=== PATIENT | male | born 1935 | race Caucasian/White ===

== ENCOUNTER 2022-12-31 19:01 | Emergency (ER) | payer MEDICARE ==
[~2022-12-31 19:01] MED LIST: Iopamidol 370 76% 100 ML VIAL ONE
[2022-12-31] MEDS ORDERED: Sodium Chloride 0.9% 1,000 ML ONE (19:50)
[2022-12-31] MEDS ORDERED: Acetaminophen 500 MG TAB ONE (19:50)
[2022-12-31 20:01] LABS: Hemoglobin 11.5 g/dL (14.0-18.0); Mean Corpuscular HGB CONC 30.9 g/dL (32.0-36.0); Mean Corpuscular Hemoglobin 28.2 pg (27.0-31.0); Mean Corpuscular Volume 91.1 fl (78.0-98.0); Mean Platelet Volume 6.1 fL (7.4-10.4); Platelet Count 152 10x3/uL (130-400); RBC Distribution Width 13.2 % (11.5-14.5); Red Blood Cell (RBC) Count 4.07 mill/uL (4.70-6.10); White Blood Cell (WBC) Count 4.5 10x3/uL (4.8-10.8)
[2022-12-31 20:02] LABS: Bilirubin Negative (Negative); Blood, Urine Negative (Negative); Clarity Clear (Clear); Glucose, Urine (Dipstick) Negative (Negative); Ketone, Urine Negative (Negative); Leukocyte Negative (Negative); Nitrite Negative (Negative); Protein, Urine (Dipstick) Negative (Neg-Trace); Specific Gravity, Urine 1.025 (1.005-1.030); Urobilinogen 0.2 mg/dL (Less than 2); pH, Urine 5.5 (5.0-9.0)
[2022-12-31 20:03] LABS: MDiff Complete? YES; Manual Diff?? YES
[2022-12-31 20:09] LABS: ALT (SGPT) 17 U/L (8-55); AST (SGOT) 17 U/L (5-34); Albumin 4.3 g/dL (3.4-4.8); Alkaline Phosphatase 76 U/L (40-110); Anion Gap 20 mmol/L (10-20); BUN (Urea Nitrogen) 24 mg/dL (8.4-25.7); Bilirubin, Total 0.3 mg/dL (0.2-1.2); Calc. Creatinine Clearance 0 mL/min (70-130); Calcium 9.4 mg/dL (7.8-10.44); Carbon Dioxide 21 mmol/L (23-31); Chloride 102 mmol/L (98-107); Estimated GFR 56; Glucose 120 mg/dL (83-110); Lipase 58 U/L (8-78); Potassium 4.6 mmol/L (3.5-5.1); Protein, Total 7.3 g/dL (5.8-8.1); Sodium 138 mmol/L (136-145)
[2022-12-31 20:20] LABS: Band 4 % (5-11); Lymphocytes 22 % (21-51); Macrocytosis SLIGHT = 6-15 cells (100X) (0-5/hpf); Monocytes 1 % (0-10); Neutrophil 72 % (42-75); Reactive Lymphocytes 1 % (0-10)
[2022-12-31 20:21] LABS: Anisocytosis SLIGHT = 6-15 cells (100X) (0-5/hpf); Elliptocytes SLIGHT = 2-5 cells (100X) (0-1/hpf)
[2022-12-31 20:23] LABS: Platelet Morphology Comment Appears Adequate; Toxic Granulation SLIGHT; Vacuoles SLIGHT
[2022-12-31] MEDS ORDERED: Sodium Chloride 0.9% 100 ML ONE (20:24)
[2022-12-31] MEDS ORDERED: Sodium Chloride 0.9% 250 ML 250 ML ONE (20:24)
[2022-12-31] MEDS ORDERED: Vancomycin 1 GM VIAL ONE (20:24)
[2022-12-31] MEDS ORDERED: Piperacillin/Tazobactam 3.375 GM VIAL ONE (20:24)
[2022-12-31 21:23] LABS: SARS-CoV-2 NAA Rapid Test Not Detected (NotDetected)
[2022-12-31] MEDS ORDERED: Ibuprofen 800 MG TAB ONE (22:50)
== END 2023-01-01 00:58 | disposition short-term general hospital (02) ==
LOC: NAV ERS 19:01 → EDBD 19:01 → NAV ERS 01-01 00:58
DX: A41.9 Sepsis, unspecified organism (principal); I95.89 Other hypotension; D72.829 Elevated white blood cell count, unspecified; E78.00 Pure hypercholesterolemia, unspecified; I10 Essential (primary) hypertension; Z79.82 Long term (current) use of aspirin; Z79.899 Other long term (current) drug therapy; Z20.822 Contact with and (suspected) exposure to COVID-19
CPT/HCPCS: 36415; 71045; 71275; 80053; 81003; 83605; 83690; 83735; 83880; 84484; 85025; 85379; 87040; 87086; 87149; 87804; 93005; 96361; 96365; 96367; J2543; J3370; J3490; J7050; Q9967; U0002

== ENCOUNTER 2025-06-22 10:10 | Emergency (ER) | payer MEDICARE | END 2025-06-22 12:30 | disposition home or self-care (01) | LOC: NAV ERS 10:10 | DX: S22.42XA Multiple fractures of ribs, left side, initial encounter for closed fracture (principal); S30.0XXA Contusion of lower back and pelvis, initial encounter; S69.91XA Unspecified injury of right wrist, hand and finger(s), initial encounter; E78.00 Pure hypercholesterolemia, unspecified; I10 Essential (primary) hypertension; W18.39XA Other fall on same level, initial encounter; Z79.899 Other long term (current) drug therapy; Z79.82 Long term (current) use of aspirin | CPT/HCPCS: 72100 ==

== ENCOUNTER 2025-07-19 08:06 | Inpatient (IN) | payer MEDICARE ==
[2025-07-19] MEDS ORDERED: Metoprolol Succinate XL 25 MG ER.TAB PO SCH (23:15)
[2025-07-19] MEDS ORDERED: Apixaban 5 MG TAB PO SCH (23:15)
[2025-07-20] MEDS: Metoprolol Succinate XL 25 MG ER.TAB PO SCH ×2 (00:17→20:26)
[2025-07-20] MEDS: Calcium Carbonate 600 MG + Vit D TAB PO SCH ×2 (00:17→08:58)
[2025-07-20] MEDS: Apixaban 5 MG TAB PO SCH ×2 (00:18→09:04)
[2025-07-20] MEDS: Mometasone 200 MCG/Formoterol 5 MCG 60 PUFF INHALER INH SCH ×2 (00:18→09:07)
[2025-07-20] MEDS: Famotidine 20 MG TAB PO SCH ×2 (00:18→09:04)
[2025-07-20] MEDS: Gabapentin 100 MG CAP PO SCH ×2 (00:18→09:00)
[2025-07-20] MEDS: Apixaban 5 MG TAB ONE (01:00)
[2025-07-20] MEDS: Famotidine 20 MG TAB ONE (01:00)
[2025-07-20] MEDS: Gabapentin 100 MG CAP ONE (01:00)
[2025-07-20 05:27] LABS: #Basophils 0.1 thou/uL (0.0-0.2); #Eosinophils 0.6 thou/uL (0.0-0.7); #Lymphocytes 1.6 thou/uL (1.20-3.40); #Monocytes 0.7 thou/uL (0.11-0.59); #Neutrophils 6.0 thou/uL (1.40-6.50); %Basophils 1.6 % (0.0-1.0); %Eosinophils 6.9 % (0.0-10.0); %Lymphocytes 17.7 % (21.0-51.0); %Monocytes 8.1 % (0.0-10.0); %Neutrophils 65.7 % (42.0-75.0); Hematocrit 23.9 % (42.0-52.0); Hemoglobin 8.6 g/dL (14.0-18.0); Mean Corpuscular Hemoglobin 30.1 pg (27.0-31.0); Mean Corpuscular Volume 84.0 fl (78.0-98.0); Platelet Count 237 10x3/uL (130-400); Red Blood Cell (RBC) Count 2.85 mill/uL (4.70-6.10); White Blood Cell (WBC) Count 9.1 10x3/uL (4.8-10.8)
[2025-07-20 05:39] LABS: ALT (SGPT) 39 U/L (Less than 45); AST (SGOT) 31 U/L (11-34); Albumin 3.0 g/dL (3.1-4.5); Alkaline Phosphatase 78 U/L (40-110); Anion Gap 15 mmol/L (10-20); BUN (Urea Nitrogen) 31 mg/dL (8.4-25.7); Bilirubin, Total 0.6 mg/dL (0.3-1.2); Calc. Creatinine Clearance 48 mL/min (70-130); Calcium 9.4 mg/dL (7.8-10.44); Carbon Dioxide 27 mmol/L (23-31); Chloride 98 mmol/L (98-107); Globulin 3.2 g/dL (2.4-3.5); Glucose 103 mg/dL (83-110); Potassium 4.2 mmol/L (3.5-5.1); Sodium 136 mmol/L (136-145)
[2025-07-20] MEDS: DULoxetine 30 MG CAP PO SCH (08:59)
[2025-07-20] MEDS: Finasteride 5 MG TAB PO SCH (09:02)
[2025-07-20] MEDS: Aspirin 81 mg Enteric Coated Tablet PO SCH (09:02)
[2025-07-20] MEDS: Furosemide 20 MG TAB PO SCH (09:03)
[2025-07-20] MEDS: Rosuvastatin 20 MG TAB PO SCH (09:03)
[2025-07-20] MEDS: Acetaminophen 325 MG TAB PO PRN (13:55)
[2025-07-21 05:18] LABS: Hematocrit 24.4 % (42.0-52.0); Hemoglobin 8.7 g/dL (14.0-18.0); Platelet Count 244 10x3/uL (130-400)
[2025-07-21 05:31] LABS: Calc. Creatinine Clearance 44.0 mL/min (70-130)
[2025-07-21] MEDS: Famotidine 20 MG TAB PO SCH (09:09)
[2025-07-21] MEDS: Apixaban 2.5 MG TAB PO SCH (09:10)
[2025-07-22 06:00] LABS: Calc. Creatinine Clearance 30.0 mL/min (70-130)
[2025-07-23] MEDS: Apixaban 5 MG TAB PO SCH (21:01)
[2025-07-24 05:50] LABS: #Basophils 0.1 thou/uL (0.0-0.2); #Eosinophils 0.4 thou/uL (0.0-0.7); #Lymphocytes 1.2 thou/uL (1.20-3.40); #Monocytes 0.6 thou/uL (0.11-0.59); #Neutrophils 3.8 thou/uL (1.40-6.50); %Basophils 1.8 % (0.0-1.0); %Eosinophils 6.6 % (0.0-10.0); %Lymphocytes 19.0 % (21.0-51.0); %Monocytes 10.5 % (0.0-10.0); %Neutrophils 62.2 % (42.0-75.0); Hematocrit 21.7 % (42.0-52.0); Hemoglobin 7.7 g/dL (14.0-18.0); Mean Corpuscular Hemoglobin 29.4 pg (27.0-31.0); Mean Corpuscular Volume 83.0 fl (78.0-98.0); Platelet Count 237 10x3/uL (130-400); Red Blood Cell (RBC) Count 2.62 mill/uL (4.70-6.10); White Blood Cell (WBC) Count 6.1 10x3/uL (4.8-10.8)
[2025-07-24 06:06] LABS: Anion Gap 12 mmol/L (10-20); BUN (Urea Nitrogen) 28 mg/dL (8.4-25.7); Calc. Creatinine Clearance 52 mL/min (70-130); Calcium 8.6 mg/dL (7.8-10.44); Carbon Dioxide 26 mmol/L (23-31); Chloride 101 mmol/L (98-107); Glucose 97 mg/dL (83-110); Potassium 3.4 mmol/L (3.5-5.1); Sodium 136 mmol/L (136-145)
[2025-07-25 06:02] LABS: Anion Gap 13 mmol/L (10-20); BUN (Urea Nitrogen) 27 mg/dL (8.4-25.7); Calc. Creatinine Clearance 52 mL/min (70-130); Calcium 8.6 mg/dL (7.8-10.44); Carbon Dioxide 25 mmol/L (23-31); Chloride 102 mmol/L (98-107); Glucose 96 mg/dL (83-110); Potassium 3.9 mmol/L (3.5-5.1); Sodium 136 mmol/L (136-145)
[2025-07-25] MEDS: Ferrous Sulfate 325 MG TAB PO SCH (09:14)
[2025-07-25] MEDS: Pantoprazole 40 MG DR.TAB PO SCH (09:15)
[2025-07-25] MEDS: Mag-Al Plus 1200/1200/120 MG (30 mL) UDCUP PO PRN (09:44)
[2025-07-29] MEDS: Senokot S 8.6-50 MG TAB PO PRN (08:33)
[2025-07-30 06:11] LABS: #Basophils 0.1 thou/uL (0.0-0.2); #Eosinophils 0.3 thou/uL (0.0-0.7); #Lymphocytes 1.4 thou/uL (1.20-3.40); #Monocytes 0.7 thou/uL (0.11-0.59); #Neutrophils 4.2 thou/uL (1.40-6.50); %Basophils 1.6 % (0.0-1.0); %Eosinophils 5.1 % (0.0-10.0); %Lymphocytes 20.8 % (21.0-51.0); %Monocytes 9.8 % (0.0-10.0); %Neutrophils 62.7 % (42.0-75.0); ALT (SGPT) 12 U/L (Less than 45); AST (SGOT) 19 U/L (11-34); Albumin 2.9 g/dL (3.1-4.5); Alkaline Phosphatase 72 U/L (40-110); Anion Gap 12 mmol/L (10-20); BUN (Urea Nitrogen) 23 mg/dL (8.4-25.7); Bilirubin, Total 0.5 mg/dL (0.3-1.2); Calc. Creatinine Clearance 42 mL/min (70-130); Calcium 8.1 mg/dL (7.8-10.44); Carbon Dioxide 25 mmol/L (23-31); Chloride 98 mmol/L (98-107); Globulin 2.9 g/dL (2.4-3.5); Glucose 92 mg/dL (83-110); Hematocrit 23.3 % (42.0-52.0); Hemoglobin 7.6 g/dL (14.0-18.0); Mean Corpuscular Hemoglobin 29.7 pg (27.0-31.0); Mean Corpuscular Volume 90.7 fl (78.0-98.0); Platelet Count 206 10x3/uL (130-400); Potassium 4.1 mmol/L (3.5-5.1); Red Blood Cell (RBC) Count 2.57 mill/uL (4.70-6.10); Sodium 131 mmol/L (136-145); White Blood Cell (WBC) Count 6.6 10x3/uL (4.8-10.8)
[2025-08-01 03:27] VITALS: BMI 28.6
[2025-08-03 05:15] LABS: #Basophils 0.1 thou/uL (0.0-0.2); #Eosinophils 0.4 thou/uL (0.0-0.7); #Lymphocytes 1.3 thou/uL (1.20-3.40); #Monocytes 0.5 thou/uL (0.11-0.59); #Neutrophils 3.8 thou/uL (1.40-6.50); %Basophils 1.2 % (0.0-1.0); %Eosinophils 5.8 % (0.0-10.0); %Lymphocytes 22.1 % (21.0-51.0); %Monocytes 9.0 % (0.0-10.0); %Neutrophils 62.0 % (42.0-75.0); Hematocrit 24.1 % (42.0-52.0); Hemoglobin 8.0 g/dL (14.0-18.0); Mean Corpuscular Hemoglobin 29.9 pg (27.0-31.0); Mean Corpuscular Volume 90.5 fl (78.0-98.0); Platelet Count 165 10x3/uL (130-400); Red Blood Cell (RBC) Count 2.66 mill/uL (4.70-6.10); White Blood Cell (WBC) Count 6.1 10x3/uL (4.8-10.8)
[2025-08-03 05:29] LABS: Anion Gap 14 mmol/L (10-20); BUN (Urea Nitrogen) 26 mg/dL (8.4-25.7); Calc. Creatinine Clearance 35 mL/min (70-130); Calcium 8.6 mg/dL (7.8-10.44); Carbon Dioxide 26 mmol/L (23-31); Chloride 99 mmol/L (98-107); Glucose 105 mg/dL (83-110); Potassium 4.1 mmol/L (3.5-5.1); Sodium 135 mmol/L (136-145)
[2025-08-03] MEDS: Proctozone-HC 30 GM TUBE TOP SCH (08:37)
[2025-08-04 05:27] LABS: Anion Gap 13 mmol/L (10-20); BUN (Urea Nitrogen) 29 mg/dL (8.4-25.7); Calc. Creatinine Clearance 36 mL/min (70-130); Calcium 8.3 mg/dL (7.8-10.44); Carbon Dioxide 25 mmol/L (23-31); Chloride 99 mmol/L (98-107); Glucose 103 mg/dL (83-110); Potassium 4.2 mmol/L (3.5-5.1); Sodium 133 mmol/L (136-145)
[2025-08-05] MEDS: Bisacodyl 10 MG SUPP PR PRN (05:07)
[2025-08-05] MEDS: Fleet Saline Enema 133 ML BOT PR SCH (15:30)
[2025-08-05] MEDS: Apixaban 2.5 MG TAB PO SCH (21:34)
[2025-08-06 08:32] VITALS: BMI 28.6
[2025-08-06 11:05] VITALS: TEMP 98.1
[2025-08-06 13:41] VITALS: BP 105/58
== END 2025-08-06 19:15 | disposition still patient (30) | DRG 945 ==
LOC: NAV ACUTE 20:09
PROVIDERS: ADMIT Family Medicine; ATTEND Family Medicine
PROC: F07Z9ZZ Gait Training/Functional Ambulation Treatment (ICD-10-PCS; principal; 2025-07-19)
DX: R53.81 Other malaise (principal); I13.0 Hypertensive heart and chronic kidney disease with heart failure and stage 1 through stage 4 chronic kidney disease, or unspecified chronic kidney disease; I50.32 Chronic diastolic (congestive) heart failure; N17.9 Acute kidney failure, unspecified; S72.091D Other fracture of head and neck of right femur, subsequent encounter for closed fracture with routine healing; I48.0 Paroxysmal atrial fibrillation; N40.0 Benign prostatic hyperplasia without lower urinary tract symptoms; J45.40 Moderate persistent asthma, uncomplicated; E78.5 Hyperlipidemia, unspecified; R41.0 Disorientation, unspecified; E87.6 Hypokalemia; N18.31 Chronic kidney disease, stage 3a; D63.1 Anemia in chronic kidney disease; K59.00 Constipation, unspecified; K21.9 Gastro-esophageal reflux disease without esophagitis; K64.9 Unspecified hemorrhoids
CPT/HCPCS: 36415; 80048; 80053; 82565; 85014; 85018; 85025; 85049; 94664; Q0162

== ENCOUNTER 2025-08-06 14:00 | Emergency (ER) | payer MEDICARE ==
[2025-08-06 14:33] LABS: #Basophils 0.0 thou/uL (0.0-0.2); #Eosinophils 0.2 thou/uL (0.0-0.7); #Lymphocytes 1.5 thou/uL (1.20-3.40); #Monocytes 0.7 thou/uL (0.11-0.59); #Neutrophils 5.6 thou/uL (1.40-6.50); %Basophils 0.6 % (0.0-1.0); %Eosinophils 3.0 % (0.0-10.0); %Lymphocytes 18.2 % (21.0-51.0); %Monocytes 8.6 % (0.0-10.0); %Neutrophils 69.7 % (42.0-75.0); Hematocrit 22.7 % (42.0-52.0); Hemoglobin 7.3 g/dL (14.0-18.0); Mean Corpuscular Hemoglobin 29.2 pg (27.0-31.0); Mean Corpuscular Volume 91.0 fl (78.0-98.0); Platelet Count 131 10x3/uL (130-400); Red Blood Cell (RBC) Count 2.49 mill/uL (4.70-6.10); White Blood Cell (WBC) Count 8.0 10x3/uL (4.8-10.8)
[2025-08-06 14:44] LABS: INR-International Normal Ratio 1.7; Prothrombin Time 20.4 sec (12.0-14.7)
[2025-08-06 14:45] LABS: PTT 48.9 sec (22.9-36.1)
[2025-08-06 14:49] LABS: ALT (SGPT) 12 U/L (Less than 45); AST (SGOT) 20 U/L (11-34); Albumin 2.9 g/dL (3.1-4.5); Alkaline Phosphatase 68 U/L (40-110); Anion Gap 15 mmol/L (10-20); BUN (Urea Nitrogen) 34 mg/dL (8.4-25.7); Bilirubin, Total 0.5 mg/dL (0.3-1.2); Calc. Creatinine Clearance 0 mL/min (70-130); Calcium 8.5 mg/dL (7.8-10.44); Carbon Dioxide 24 mmol/L (23-31); Chloride 100 mmol/L (98-107); Globulin 3.1 g/dL (2.4-3.5); Glucose 136 mg/dL (83-110); Potassium 3.7 mmol/L (3.5-5.1); Sodium 135 mmol/L (136-145)
[2025-08-06] MEDS ORDERED: Pantoprazole 40 MG VIAL ONE (16:40)
== END 2025-08-06 20:14 | disposition short-term general hospital (02) ==
LOC: NAV ERS 14:00
DX: K92.2 Gastrointestinal hemorrhage, unspecified (principal); D64.9 Anemia, unspecified; I48.91 Unspecified atrial fibrillation; N28.9 Disorder of kidney and ureter, unspecified; E78.00 Pure hypercholesterolemia, unspecified; I11.0 Hypertensive heart disease with heart failure; I50.9 Heart failure, unspecified; J45.909 Unspecified asthma, uncomplicated; Z79.51 Long term (current) use of inhaled steroids; Z79.82 Long term (current) use of aspirin; Z79.01 Long term (current) use of anticoagulants; Z79.899 Other long term (current) drug therapy
CPT/HCPCS: 80053; 85025; 85610; 85730; 86900; 86901; 94760; J2470; 82274; 96374

== ENCOUNTER 2025-08-14 13:08 | Inpatient (IN) | payer MEDICARE ==
[2025-08-14] MEDS ORDERED: Senokot S 8.6-50 MG TAB PO PRN (14:03)
[2025-08-14] MEDS ORDERED: Mag-Al Plus 1200/1200/120 MG (30 mL) UDCUP PO PRN (14:03)
[2025-08-14 18:04] VITALS: BMI 26.9
[2025-08-14] MEDS: Mometasone 100 MCG/Formoterol 5 MCG 60 PUFF AEROSOL INH SCH (20:55)
[2025-08-14] MEDS: Calcium Carbonate 600 MG + Vit D TAB PO SCH (20:56)
[2025-08-14] MEDS: Metoprolol Succinate XL 25 MG ER.TAB PO SCH (20:56)
[2025-08-14] MEDS: Gabapentin 100 MG CAP PO SCH (20:57)
[2025-08-15 05:17] LABS: #Basophils 0.2 thou/uL (0.0-0.2); #Eosinophils 0.4 thou/uL (0.0-0.7); #Lymphocytes 1.6 thou/uL (1.20-3.40); #Monocytes 0.6 thou/uL (0.11-0.59); #Neutrophils 3.8 thou/uL (1.40-6.50); %Basophils 3.6 % (0.0-1.0); %Eosinophils 5.8 % (0.0-10.0); %Lymphocytes 23.6 % (21.0-51.0); %Monocytes 9.2 % (0.0-10.0); %Neutrophils 57.9 % (42.0-75.0); Hematocrit 26.5 % (42.0-52.0); Hemoglobin 9.1 g/dL (14.0-18.0); Mean Corpuscular Hemoglobin 30.0 pg (27.0-31.0); Mean Corpuscular Volume 87.5 fl (78.0-98.0); Platelet Count 184 10x3/uL (130-400); Red Blood Cell (RBC) Count 3.03 mill/uL (4.70-6.10); White Blood Cell (WBC) Count 6.6 10x3/uL (4.8-10.8)
[2025-08-15 05:30] LABS: ALT (SGPT) 39 U/L (Less than 45); AST (SGOT) 38 U/L (11-34); Albumin 2.8 g/dL (3.1-4.5); Alkaline Phosphatase 67 U/L (40-110); Anion Gap 13 mmol/L (10-20); BUN (Urea Nitrogen) 22 mg/dL (8.4-25.7); Bilirubin, Total 0.2 mg/dL (0.3-1.2); Calc. Creatinine Clearance 60 mL/min (70-130); Calcium 9.0 mg/dL (7.8-10.44); Carbon Dioxide 26 mmol/L (23-31); Chloride 101 mmol/L (98-107); Globulin 3.0 g/dL (2.4-3.5); Glucose 107 mg/dL (83-110); Potassium 3.9 mmol/L (3.5-5.1); Sodium 136 mmol/L (136-145)
[2025-08-15] MEDS: DULoxetine 30 MG CAP PO SCH (08:27)
[2025-08-15] MEDS: Rosuvastatin 20 MG TAB PO SCH (08:28)
[2025-08-15] MEDS: Furosemide 20 MG TAB PO SCH (08:29)
[2025-08-15] MEDS: Pantoprazole 40 MG DR.TAB PO SCH (08:29)
[2025-08-15] MEDS: Finasteride 5 MG TAB PO SCH (08:29)
[2025-08-16] MEDS: Ferrous Sulfate 325 MG TAB PO SCH (08:13)
[2025-08-16 20:14] VITALS: BMI 26.9
[2025-08-17] MEDS: Acetaminophen 325 MG TAB PO PRN (03:30)
[2025-08-17] MEDS ORDERED: Metoprolol Succinate XL 25 MG ER.TAB PO SCH (08:40)
[2025-08-17] MEDS: Furosemide 20 MG TAB PO SCH (08:55)
[2025-08-17] MEDS: Metoprolol Succinate XL 25 MG ER.TAB PO SCH (20:10)
[2025-08-19 06:22] LABS: #Basophils 0.1 thou/uL (0.0-0.2); #Eosinophils 0.4 thou/uL (0.0-0.7); #Lymphocytes 1.8 thou/uL (1.20-3.40); #Monocytes 0.4 thou/uL (0.11-0.59); #Neutrophils 3.8 thou/uL (1.40-6.50); %Basophils 0.9 % (0.0-1.0); %Eosinophils 5.9 % (0.0-10.0); %Lymphocytes 28.3 % (21.0-51.0); %Monocytes 5.7 % (0.0-10.0); %Neutrophils 59.3 % (42.0-75.0); Hematocrit 26.3 % (42.0-52.0); Hemoglobin 9.0 g/dL (14.0-18.0); Mean Corpuscular Hemoglobin 29.8 pg (27.0-31.0); Mean Corpuscular Volume 87.7 fl (78.0-98.0); Platelet Count 196 10x3/uL (130-400); Red Blood Cell (RBC) Count 3.00 mill/uL (4.70-6.10); White Blood Cell (WBC) Count 6.4 10x3/uL (4.8-10.8)
[2025-08-24 08:37] VITALS: BP 111/65; TEMP 97.6
== END 2025-08-24 10:14 | disposition home or self-care (01) | DRG 560 ==
LOC: NAV ACUTE 17:02
PROVIDERS: ADMIT Family Medicine; ATTEND Family Medicine
PROC: F07Z9ZZ Gait Training/Functional Ambulation Treatment (ICD-10-PCS; principal; 2025-08-14)
PROC: 0T9B70Z Drainage of Bladder with Drainage Device, Via Natural or Artificial Opening (ICD-10-PCS; principal; 2025-08-14)
DX: S72.001D Fracture of unspecified part of neck of right femur, subsequent encounter for closed fracture with routine healing (principal); I13.0 Hypertensive heart and chronic kidney disease with heart failure and stage 1 through stage 4 chronic kidney disease, or unspecified chronic kidney disease; I50.32 Chronic diastolic (congestive) heart failure; K92.2 Gastrointestinal hemorrhage, unspecified; R33.8 Other retention of urine; I25.10 Atherosclerotic heart disease of native coronary artery without angina pectoris; E78.5 Hyperlipidemia, unspecified; N18.32 Chronic kidney disease, stage 3b; N40.1 Benign prostatic hyperplasia with lower urinary tract symptoms; Z96.653 Presence of artificial knee joint, bilateral; I48.0 Paroxysmal atrial fibrillation; G62.9 Polyneuropathy, unspecified; F32.9 Major depressive disorder, single episode, unspecified; J45.40 Moderate persistent asthma, uncomplicated; Z87.440 Personal history of urinary (tract) infections; Z95.1 Presence of aortocoronary bypass graft; Z95.0 Presence of cardiac pacemaker; Z95.2 Presence of prosthetic heart valve; Z89.422 Acquired absence of other left toe(s); Z98.890 Other specified postprocedural states; Z88.8 Allergy status to other drugs, medicaments and biological substances; Z88.1 Allergy status to other antibiotic agents; Z79.891 Long term (current) use of opiate analgesic; Z79.899 Other long term (current) drug therapy; Z79.01 Long term (current) use of anticoagulants
CPT/HCPCS: 36415; 80053; 85025; 94664